=== PATIENT | male | born 1945 | race Caucasian/White ===

== ENCOUNTER 2017-08-30 12:39 | Outpatient (CLI) | payer MEDICARE, BC ==
[~2017-08-30 12:39] MED LIST: ASPI-605 PO; FINA5TAB4 PO; GABA-536 PO; IRBE300T19 PO; LANS15TA6 PO; PRAV80TA21 PO; TAMS0.4C34 PO
== END 2017-08-30 23:59 | disposition home or self-care (01) ==
LOC: WOU 12:39
PROVIDERS: ATTEND Podiatrist Foot & Ankle Surgery
DX: E11.621 Type 2 diabetes mellitus with foot ulcer (principal); L97.522 Non-pressure chronic ulcer of other part of left foot with fat layer exposed; M20.42 Other hammer toe(s) (acquired), left foot; Z89.421 Acquired absence of other right toe(s); E11.42 Type 2 diabetes mellitus with diabetic polyneuropathy; I10 Essential (primary) hypertension; Z87.891 Personal history of nicotine dependence
CPT/HCPCS: G0463; Z7610

== ENCOUNTER 2017-09-09 13:58 | Outpatient (CLI) | payer MEDICARE, BC | END 2017-09-09 23:59 | disposition home or self-care (01) | LOC: WOU 13:58 | PROVIDERS: ATTEND Podiatrist Foot & Ankle Surgery | DX: E11.621 Type 2 diabetes mellitus with foot ulcer (principal); L97.522 Non-pressure chronic ulcer of other part of left foot with fat layer exposed; Z89.421 Acquired absence of other right toe(s); E11.42 Type 2 diabetes mellitus with diabetic polyneuropathy; M20.42 Other hammer toe(s) (acquired), left foot; I10 Essential (primary) hypertension | CPT/HCPCS: 73630-TC; A6402; G0463; Z7610 ==

== ENCOUNTER 2017-09-23 08:24 | Day surgery (SDC) | payer MEDICARE, BC ==
[2017-09-23] MEDS ORDERED: LIDOCAINE HCL/PF 1% 30 ML SDV ONE (09:44)
== END 2017-09-23 12:15 | disposition home or self-care (01) ==
LOC: DS 08:24
PROVIDERS: ATTEND Podiatrist Foot & Ankle Surgery
DX: M20.42 Other hammer toe(s) (acquired), left foot (principal); I10 Essential (primary) hypertension; E11.42 Type 2 diabetes mellitus with diabetic polyneuropathy; I73.9 Peripheral vascular disease, unspecified; Z87.891 Personal history of nicotine dependence; L97.529 Non-pressure chronic ulcer of other part of left foot with unspecified severity; Z79.82 Long term (current) use of aspirin; Z79.899 Other long term (current) drug therapy
CPT/HCPCS: 28285; 73630; 88304; 88311; A6402 ×2; J0690; J2704; J3490 ×2

== ENCOUNTER 2017-09-30 11:20 | Outpatient (CLI) | payer MEDICARE, BC | END 2017-09-30 23:59 | disposition home or self-care (01) | LOC: WOU 11:20 | PROVIDERS: ATTEND Podiatrist Foot & Ankle Surgery | DX: Z47.89 Encounter for other orthopedic aftercare (principal); E11.42 Type 2 diabetes mellitus with diabetic polyneuropathy; Z89.421 Acquired absence of other right toe(s); M20.42 Other hammer toe(s) (acquired), left foot; I10 Essential (primary) hypertension; Z87.891 Personal history of nicotine dependence | CPT/HCPCS: A6402; G0463; Z7610 ==

== ENCOUNTER 2017-10-07 11:15 | Outpatient (CLI) | payer MEDICARE, BC | END 2017-10-07 23:59 | disposition home or self-care (01) | LOC: WOU 11:15 | PROVIDERS: ATTEND Podiatrist Foot & Ankle Surgery | DX: T81.4XXA Infection following a procedure, initial encounter (principal); L03.032 Cellulitis of left toe; E11.42 Type 2 diabetes mellitus with diabetic polyneuropathy; Z89.421 Acquired absence of other right toe(s); M20.42 Other hammer toe(s) (acquired), left foot; I10 Essential (primary) hypertension; Z87.891 Personal history of nicotine dependence | CPT/HCPCS: A6402; G0463; Z7610 ==

== ENCOUNTER 2017-10-19 11:59 | Outpatient (CLI) | payer MEDICARE, BC | END 2017-10-19 23:59 | disposition home or self-care (01) | LOC: WOU 11:59 | PROVIDERS: ATTEND Podiatrist Foot & Ankle Surgery | DX: T81.31XA Disruption of external operation (surgical) wound, not elsewhere classified, initial encounter (principal); E11.621 Type 2 diabetes mellitus with foot ulcer; L97.522 Non-pressure chronic ulcer of other part of left foot with fat layer exposed; M20.42 Other hammer toe(s) (acquired), left foot; E11.42 Type 2 diabetes mellitus with diabetic polyneuropathy; Z89.421 Acquired absence of other right toe(s); I10 Essential (primary) hypertension; Z87.891 Personal history of nicotine dependence | CPT/HCPCS: 11042; A6253; A6402; Z7610 ==

== ENCOUNTER 2017-11-11 09:57 | Outpatient (CLI) | payer MEDICARE, BC | END 2017-11-11 23:59 | disposition home or self-care (01) | LOC: WOU 09:57 | PROVIDERS: ATTEND Podiatrist Foot & Ankle Surgery | DX: T81.31XA Disruption of external operation (surgical) wound, not elsewhere classified, initial encounter (principal); E11.621 Type 2 diabetes mellitus with foot ulcer; L97.522 Non-pressure chronic ulcer of other part of left foot with fat layer exposed; E11.42 Type 2 diabetes mellitus with diabetic polyneuropathy; Z89.421 Acquired absence of other right toe(s); I10 Essential (primary) hypertension; Z87.891 Personal history of nicotine dependence | CPT/HCPCS: 11042; A6402; Z7610 ==